=== PATIENT | female | born 1935 | race Hispanic/Latino ===

== ENCOUNTER 2018-05-09 12:44 | Inpatient (IN) | payer MEDICARE, SELFPAY ==
--- NOTE | 2018-05-09 13:26 | ED PDOC ---
Arrival/HPI - General EM Caveat: Uncooperative - History of Present Illness Time/Duration: Prior to Arrival Symptom Onset: Sudden Symptom Course: Unchanged Context: Walking, Exertion <Gelacio Garcia - Last Filed: 05/09/18 18:23> <Giuseppe Saxena - Last Filed: 05/10/18 15:26> - General Chief Complaint: Syncope Time Seen by Provider: 05/09/18 12:53 - History of Present Illness Narrative History of Present Illness (Text): 05/09/18 13:24 Patient is an 82 year old female with PMH of DM2, hypothyroidism, and HLD who presents to ED via EMS following a fall by her house. She was found to have numerous bed bugs all over her clothing upon arrival in ED. She states that remembers falling and denies LOC. She states that she lives alone and admits to not taking her previously prescribed medicines for an unknown period of time. She states that she only takes a pill for diabetes in the morning. She denies hitting her head and denies any pain anywhere. She was uncooperative throughout the exam and states she would rather go home. She admits to worsening dyspnea on exertion for the past month and believes this contributed to her fall. She denies fever, chills, PICKARD, blurred vision, CP, palpitations, or urinary changes. (Gelacio Garcia) Past Medical History - Provider Review Nursing Documentation Reviewed: Yes - Travel History Have you recently traveled outside [place] w/in the past 3 mons?: No - Infectious Disease Hx of Infectious Diseases: None - Tetanus Immunization Tetanus Immunization: Unknown - Cardiac Hx Cardiac Disorders: Yes Hx Hypertension: Yes - Pulmonary Hx Respiratory Disorders: No - Neurological Hx Neurological Disorder: No - Endocrine/Metabolic Hx Endocrine Disorders: Yes Hx Hypothyroidism: Yes - Musculoskeletal/Rheumatological Hx Falls: Yes - Gastrointestinal Hx Gastrointestinal Disorders: No - Genitourinary/Gynecological Hx Genitourinary Disorders: Yes Hx Urinary Tract Infection: Yes - Psychiatric Hx Psychophysiologic Disorder: Yes Hx Depression: Yes Hx Substance Use: No - Past Surgical History Past Surgical History: Non-Contributing - Suicidal Assessment Feels Threatened In Home Enviroment: No <Gelacio Garcia - Last Filed: 05/09/18 18:23> Family/Social History - Physician Review Nursing Documentation Reviewed: Yes Family/Social History: No Known Family HX Smoking Status: Never Smoked Hx Alcohol Use: No Hx Substance Use: No Hx Substance Use Treatment: No <Gelacio Garcia - Last Filed: 05/09/18 18:23> Allergies/Home Meds <Gelacio Garcia - Last Filed: 05/09/18 18:23> <Giuseppe Saxena - Last Filed: 05/10/18 15:26> Allergies/Adverse Reactions: Allergies No Known Allergies Allergy (Verified 05/09/18 12:59) Home Medications: Home Meds Medication Instructions Recorded Confirmed Unobtainable 05/09/18 05/09/18 Review of Systems - Physician Review All systems were reviewed & negative as marked: Yes - Review of Systems Systems not reviewed;Unavailable: Uncooperative Constitutional: absent: Fatigue, Fevers Eyes: absent: Vision Changes ENT: absent: Voice Changes, Sore Throat Respiratory: SOB. absent: Cough, Wheezing Cardiovascular: absent: Chest Pain, Palpitations Gastrointestinal: absent: Abdominal Pain, Nausea, Vomiting Genitourinary Female: absent: Dysuria Musculoskeletal: absent: Arthralgias Skin: absent: Rash Neurological: absent: Headache, Speech Changes Endocrine: absent: Diaphoresis Hemo/Lymphatic: absent: Adenopathy Psychiatric: absent: Anxiety, Depression <Gelacio Garcia - Last Filed: 05/09/18 18:23> Physical Exam Vital Signs Reviewed: Yes Temperature: Afebrile Blood Pressure: Normal Pulse: Regular Respiratory Rate: Normal Appearance: Positive for: Ill-Appearing, Unkept, Other (numerous bed bugs throughout clothing) Pain Distress: None Mental Status: Positive for: Confused - Systems Exam Head: Present: Atraumatic, Normocephalic Pupils: Present: PERRL Extroacular Muscles: Present: EOMI Conjunctiva: Present: Normal Ears: Present: Normal Mouth: Present: Dry Pharnyx: Present: Normal. No: ERYTHEMA, EXUDATE Nose (External): Present: Atraumatic Neck: Present: Normal Range of Motion Respiratory/Chest: Present: Clear to Auscultation. No: Wheezes, Rales, Rhonchi Cardiovascular: Present: Regular Rate and Rhythm, Normal S1, S2. No: Murmurs, Rub, Gallop Abdomen: No: Tenderness, Rebound, Guarding Back: Present: Normal Inspection Upper Extremity: Present: Normal Inspection. No: Cyanosis Lower Extremity: Present: Normal Inspection. No: Edema Neurological: Present: Speech Normal Skin: Present: Warm, Dry Psychiatric: Present: Alert, Oriented x 3, Agitated <Gelacio Garcia - Last Filed: 05/09/18 18:23> Vital Signs Temp Pulse Resp BP Pulse Ox 05/09/18 23:00 97.8 F 80 20 128/60 99 05/09/18 21:00 98 F 86 18 130/62 98 05/09/18 18:55 86 18 138/68 100 05/09/18 14:28 98.5 F 89 18 118/74 97 Medical Decision Making - Lab Interpretations I have reviewed the lab results: Yes Interpretation: Abnormal lab values (hyperglycemia, normocytic anemia, mildly elevated LFTs, elevated BNP) - RAD Interpretation Ethylbenzene Converter Operator: Radiologist - EKG Interpretation Interpreted by ED Physician: Yes Type: 12 lead EKG Comparison: No previous EKG avail. <Gelacio Garcia - Last Filed: 05/09/18 18:23> <Giuseppe Saxena - Last Filed: 05/10/18 15:26> ED Course and Treatment: 05/09/18 13:42 -Patient presents after pre-syncopal episode -Will get CBC, CMP, CT head wo contrast, 05/09/18 16:17 -Glucose noted to be 380 in ED -4 units of regular insulin given in ED 05/09/18 16:20 -Case discussed with Dr. Wilcox who agrees to admission -CT head and CXR still pending 05/09/18 18:20 -CT head and CXR negative for acute findings -Admission order placed (Gelacio Garcia) 05/10/18 15:25 pt seen with residnet s/p syncopal episode. pt poor hsitorain, unkept covered with bugs. labs baseline, ct neg, cxr neg. ua pos. antibootics dosed. acepte by dr wilcox. (Giuseppe Saxena) - Lab Interpretations Lab Results: 05/09/18 15:10 05/09/18 15:10 Lab Results 05/09/18 16:36: POC Glucose (mg/dL) 279 H 05/09/18 15:10: Sodium 140, Potassium 4.5, Chloride 102, Carbon Dioxide 26, Anion Gap 18, BUN 19, Creatinine 0.9, Est GFR ( Amer) > 60, Est GFR (Non- Af Amer) > 60, Random Glucose 380 H* D, Calcium 9.0, Magnesium 2.0, Total Bilirubin 0.4, AST 71 H, ALT 61 H, Alkaline Phosphatase 103, Lactate Dehydrogenase 645, Total Creatine Kinase 86, Troponin I < 0.01 D, NT-Pro-B Natriuret Pep 599 H, Total Protein 7.8, Albumin 4.0, Globulin 3.7, Albumin/ Globulin Ratio 1.1 05/09/18 15:10: PT 11.2, INR 0.98, APTT 23.9 L 05/09/18 15:10: WBC 9.2, RBC 3.59, Hgb 8.7 L, Hct 28.9 L, MCV 80.5, MCH 24.2 L, MCHC 30.1 L, RDW 15.3 H, Plt Count 348, MPV 8.5, Gran % 88.2 H, Lymph % (Auto) 6.6 L, [place] % (Auto) 5.0, Eos % (Auto) 0.0 L, Baso % (Auto) 0.2, Gran # 8.11 H, Lymph # (Auto) 0.6 L, [place] # (Auto) 0.5, Eos # (Auto) 0.0, Baso # (Auto) 0.02 - RAD Interpretation Narrative RAD Interpretations (Text): 05/09/18 18:18 CXR without acute findings CT Head: IMPRESSION: No definite acute intracranial findings by standard CT criteria. Age appropriate proportional stable age related neuro degenerative changes identified. Follow-up CT or MRI are available if clinically warranted. ( Gelacio Garcia) Radiology Orders: 05/09/18 13:35 HEAD W/O CONTRAST [CT] Stat CHEST PORTABLE [RAD] Stat - EKG Interpretation EKG Interpretation (Text): 05/09/18 14:00 Normal sinus rhythm, some mild ST depression in V5-V6 may be sign of ischemia ( Gelacio Garcia) - Medication Orders Current Medication Orders: Aspirin (Ecotrin) 81 mg PO DAILY [facility] Last Admin: 05/10/18 08:59 Dose: 81 mg Sodium Chloride (Sodium Chloride 0.45%) 1,000 mls @ 75 mls/hr IV .[id number] [facility]BIN Last Admin: 05/10/18 08:26 Dose: 75 mls/hr eMAR Start Stop Document 05/10/18 08:26 KMS (Rec: 05/10/18 08:26 KMS [id number]) Intravenous Solution Start Date 05/10/18 Start Time 08:26 Ceftriaxone Sodium (Rocephin 1 Gram Ivpb) 1 gm in 100 mls @ 100 mls/hr IVPB DAILY [facility] PRN Reason: Protocol Insulin Human Lispro (Humalog Med) 0 units SC ACHS [facility] PRN Reason: Protocol Last Admin: 05/10/18 12:21 Dose: 1 units MAR Blood Glucose Document 05/10/18 12:21 KMS (Rec: 05/10/18 12:21 KMS [id number]) Blood Glucose Finger Stick Blood Glucose (70-120) 195 Subcutaneous Administrations Document 05/10/18 12:21 KMS (Rec: 05/10/18 12:21 KMS [id number]) Injection Site MAR Injection Site Right Arm Charges for Administration # of Subcutaneous Administrations 1 Metformin HCl (Glucophage) 500 mg PO ACBD [facility] Last Admin: 05/10/18 08:25 Dose: 500 mg Discontinued Medications Ceftriaxone Sodium (Rocephin 1 Gram Ivpb) 1 gm in 100 mls @ 100 mls/hr IVPB STAT STA PRN Reason: Protocol Stop: 05/09/18 21:51 Last Admin: 05/10/18 00:23 Dose: 100 mls/hr eMAR Start Stop Document 05/10/18 00:23 MC (Rec: 05/10/18 00:24 MC [id number]) Intravenous Solution Start Date 05/10/18 Start Time 00:23 End Date 05/10/18 End time 01:25 Total Infusion Time 62 Ceftriaxone Sodium (Rocephin 1 Gram Ivpb) 1 gm in 100 mls @ 100 mls/hr IVPB STAT STA PRN Reason: Protocol Stop: 05/10/18 01:09 Last Admin: 05/10/18 01:30 Dose: 100 mls/hr eMAR Start Stop Document 05/10/18 01:30 MC (Rec: 05/10/18 03:28 MC [id number]) Intravenous Solution Start Date 05/10/18 Start Time 01:30 End Date 05/10/18 End time 02:30 Total Infusion Time 60 Insulin Human Regular (Humulin R) 4 units IV STAT STA Stop: 05/09/18 15:45 Last Admin: 05/09/18 16:33 Dose: 4 units eMAR Start Stop Document 05/09/18 16:33 [email or web address] (Rec: 05/09/18 16:39 [email or web address] [id number]) Intravenous Solution Start Date 05/09/18 Start Time 16:39 MAR Blood Glucose Document 05/09/18 16:33 [email or web address] (Rec: 05/09/18 16:39 [email or web address] [id number]) Blood Glucose Finger Stick Blood Glucose (70-120) 279 <Gelacio Garcia - Last Filed: 05/09/18 18:23> - Scribe Statement The provider has reviewed the documentation as recorded by the Scribe <Giuseppe Saxena - Last Filed: 05/10/18 15:26> - Scribe Statement Michael Hanson Patient Seen With Resident: In agreement with resident note. Patient was seen and evaluated with resident, came up with plan and treatment together. (Giuseppe Saxena) Disposition/Present on Arrival - Present on Arrival Any Indicators Present on Arrival: Yes History of DVT/PE: No History of Uncontrolled Diabetes: Yes Urinary Catheter: No History of Decub. Ulcer: No History Surgical Site Infection Following: None - Disposition Have Diagnosis and Disposition been Completed?: Yes Disposition Time: 18:19 Isolation: Contact Patient Plan: Admission <Gelacio Garcia - Last Filed: 05/09/18 18:23> <Giuseppe Saxena - Last Filed: 05/10/18 15:26> - Disposition Diagnosis: Fall, Hyperglycemia due to type 2 diabetes mellitus, Uncontrolled type 2 diabetes mellitus, Syncope, Abnormal EKG Disposition: HOSPITALIZED Patient Problems: Current Active Problems Problem Status Onset Abnormal EKG Acute Fall Acute Hyperglycemia due to type 2 diabetes mellitus Acute Syncope Acute Uncontrolled type 2 diabetes mellitus Acute Condition: FAIR
[2018-05-09 15:21] LABS: BASO # 0.02 K/mm3 (0.0-2.0); BASO % 0.2 % (0.0-3.0); GRAN # 8.11 (1.4-6.5); GRAN % 88.2 % (50.0-68.0); HEMOGLOBIN 8.7 g/dL (12.0-16.0); LYMPH # 0.6 (1.2-3.4); LYMPH % 6.6 % (22.0-35.0); MEAN CELL VOLUME 80.5 fl (80.0-105.0); MEAN CORPUSCULAR HEMOGLOBIN 24.2 pg (25.0-35.0); MEAN CORPUSCULAR HGB CONC 30.1 g/dl (31.0-37.0); MEAN PLATELET VOLUME 8.5 fl (7.0-11.0); MONO # 0.5 (0.1-0.6); RBC 3.59 10^6/uL (3.5-6.1); RED CELL DISTRIBUTION WIDTH 15.3 % (11.5-14.5); WHITE BLOOD COUNT 9.2 10^3/ul (4.5-11.0)
[2018-05-09 15:30] LABS: INR 0.98; PARTIAL THROMBOPLASTIN TIME 23.9 Seconds (25.1-36.5); PROTHROMBIN TIME 11.2 SECONDS (9.4-12.5)
[2018-05-09 15:43] LABS: ALB/GLOB RATIO 1.1 (1.1-1.8); ALT/SGPT 61 U/L (7-56); AST/SGOT 71 U/L (14-36); B-TYPE NATRIURETIC PEPTIDE 599 pg/mL (0-450); BLOOD UREA NITROGEN 19 mg/dL (7-21); GFR NON-AFRICAN AMERICAN > 60; TROPONIN I < 0.01 ng/mL
[2018-05-09] MEDS ORDERED: Insulin Regular 1 UNITS/0.01 ML ML IV STA (15:44)
--- NOTE | 2018-05-09 17:36 | CARD ---
APPROVED REPORT Date of service: 05/09/2018 EKG Measurement Heart [id number] <Conclusion> Normal sinus rhythm ST & T wave abnormality, consider lateral ischemia Abnormal ECG
--- NOTE | 2018-05-09 18:16 | CT ---
Date of service: 05/09/2018 PROCEDURE: CT HEAD WITHOUT CONTRAST. HISTORY: syncope COMPARISON: Head CT 08/11/2012 TECHNIQUE: Axial computed tomography images were obtained through the head/brain without intravenous contrast. Radiation dose: Total exam DLP = 741.61 mGy-cm. This CT exam was performed using one or more of the following dose reduction techniques: Automated exposure control, adjustment of the mA and/or kV according to patient size, and/or use of iterative reconstruction technique. FINDINGS: HEMORRHAGE: No intracranial hemorrhage. BRAIN: Good corticomedullary differentiation is seen. Age-appropriate, proportional, diffuse cerebral atrophy and chronic microangiopathy are reiterated. No suspicious extra-axial fluid collection is identified and the midline brain anatomy appears grossly nonfocal as imaged. There is no mass effect throughout. VENTRICLES: Unremarkable. No hydrocephalus. CALVARIUM: Unremarkable. 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 MASTOID AIR CELLS: Unremarkable as visualized. No inflammatory changes. OTHER FINDINGS: None. IMPRESSION: No definite acute intracranial findings by standard CT criteria. Age appropriate proportional stable age related neuro degenerative changes identified. Follow-up CT or MRI are available if clinically warranted.
--- NOTE | 2018-05-09 18:52 | HP ---
Copied To: Jamir Wilcox MD Attending MD: Jamir Wilcox MD HISTORY OF PRESENT ILLNESS: The patient is 82 years old, unkempt, was brought to emergency room after a fall by her house. The patient lives by herself. She cannot recall what happened, but she found herself on the floor. Did not lose consciousness. Very noncompliant with medications. No history of fever or chills. No nausea or vomiting. No diarrhea. Does complain of having generalized weakness and having shortness of breath on walking. Denies any chest pain. No abdominal pain. PAST MEDICAL HISTORY: Significant for, 1. Hypertension. 2. Hypothyroidism. 3. Hyperlipidemia. 4. Anxiety disorder. ALLERGIES: SHE IS NOT ALLERGIC TO ANY MEDICATIONS. SOCIAL HISTORY: She lives by herself. She is very unkempt and was documented by the ER physician that the patient had bedbugs allover her body and clothing. MEDICATIONS AT HOME: She is supposedly should be taking Enalapril, simvastatin, olanzapine and Synthroid. PHYSICAL EXAMINATION: GENERAL: Unkempt, not cooperative. VITAL SIGNS: She is afebrile, pulse 89, respirations 18, blood pressure 118/74. LUNGS: Bilateral good airflow. No rhonchi or crackle. HEART: S1 and S2 audible. ABDOMEN: Soft. Nontender. No rebound. No guarding. NEUROLOGICAL: The patient is awake, alert, oriented, communicative. LABORATORY EXAM: WBC is 9.2, hemoglobin 9.7, hematocrit 28.9, platelet of 348. PT 11.2, INR 0.98. Chemistry: Sodium 140, potassium 4.5, chloride 102, CO2 of 26, BUN 19, creatinine 0.9, blood sugar of 279, AST 71, ALT 61, BNP 599, troponin 0.01. CT scan of the head is unremarkable. X-ray chest is negative. She has age-appropriate brain atrophy. ASSESSMENT: 1. Status post fall and syncope. 2. History of hypertension. 3. Igh-qiahxzq-iobscoxsd diabetes. 4. Mild dementia. 5. History of bipolar disorder. PLAN: We will start the patient on IV fluid. Monitor her blood sugar. Resume her medications. Order for carotid Doppler. Also, request for neuro evaluation. Jamir Wilcox MD [facility] # [id number]
[2018-05-09] MEDS: Sodium Chloride 0.45% 1,000 ML IV SCH (19:35)
[2018-05-09 20:43] LABS: URINE BILIRUBIN NEGATIVE (NEGATIVE); URINE BLOOD NEGATIVE (NEGATIVE); URINE GLUCOSE (UA) 500 mg/dL (NEGATIVE); URINE LEUKOCYTE ESTERASE TRACE Leu/uL (NEGATIVE); URINE PROTEIN >=300 mg/dL (<30 mg/dL); URINE UROBILINOGEN 0.2 E.U./dL (<1 E.U./dL)
[2018-05-09 20:48] LABS: URINE COLOR YELLOW (YELLOW)
[2018-05-09 20:49] LABS: URINE APPEARANCE SLIGHT-CLOUDY (CLEAR)
[2018-05-09] MEDS ORDERED: cefTRIAXone 1 gm 1 GM/100 ML BAG IVPB STA (20:52)
[2018-05-09 21:07] LABS: TROPONIN I 0.02 ng/mL
[2018-05-10] MEDS: Insulin Lispro (humaLOG) MEDIUM Coverage SC SCH ×5 (00:06→23:41)
[2018-05-10] MEDS ORDERED: cefTRIAXone 1 gm 1 GM/100 ML BAG IVPB STA (00:10)
[2018-05-10 03:47] VITALS: BMI 31.6
[2018-05-10 07:47] LABS: IRON 19 ug/dL (45-180)
[2018-05-10 07:54] LABS: ALBUMIN 3.6 g/dL (3.0-4.8); ALT/SGPT 45 U/L (7-56); AST/SGOT 38 U/L (14-36); BLOOD UREA NITROGEN 15 mg/dL (7-21); GFR NON-AFRICAN AMERICAN > 60
[2018-05-10 07:56] LABS: % IRON SATURATION 5 % (20-55); TOTAL IRON BINDING CAPACITY 367 ug/dL (265-497)
[2018-05-10 08:02] LABS: BASO # 0.02 K/mm3 (0.0-2.0); BASO % 0.3 % (0.0-3.0); EOS # 0.4 (0.0-0.7); FREE T4 0.89 ng/dL (0.78-2.19); GRAN # 4.06 (1.4-6.5); GRAN % 57.1 % (50.0-68.0); HEMOGLOBIN 8.4 g/dL (12.0-16.0); LYMPH # 1.6 (1.2-3.4); LYMPH % 22.4 % (22.0-35.0); MEAN CELL VOLUME 80.8 fl (80.0-105.0); MEAN CORPUSCULAR HEMOGLOBIN 24.4 pg (25.0-35.0); MEAN CORPUSCULAR HGB CONC 30.2 g/dl (31.0-37.0); MEAN PLATELET VOLUME 8.5 fl (7.0-11.0); MONO % 14.2 % (1.0-6.0); RBC 3.44 10^6/uL (3.5-6.1); RED CELL DISTRIBUTION WIDTH 15.5 % (11.5-14.5); WHITE BLOOD COUNT 7.1 10^3/ul (4.5-11.0)
[2018-05-10] MEDS: Sodium Chloride 0.45% 1,000 ML IV SCH (08:26)
--- NOTE | 2018-05-10 10:26 | RAD ---
Date of service: 05/09/2018 HISTORY: sob COMPARISON: 07/22/2013. FINDINGS: LUNGS: The lungs are hyperinflated and there is peribronchial thickening with chronic changes in both lungs. PLEURA: No significant pleural effusion identified, no pneumothorax apparent. CARDIOVASCULAR: There is mild cardiomegaly. Atherosclerotic aortic arch calcifications are present. OSSEOUS STRUCTURES: No significant abnormalities. VISUALIZED UPPER ABDOMEN: Normal. OTHER FINDINGS: None. IMPRESSION: No active pulmonary disease. COPD.
--- NOTE | 2018-05-10 13:15 | CON ---
Copied To: King Ardon MD Attending MD: King Ardon MD NEUROLOGY CONSULTATION DATE: 05/10/2018 CHIEF COMPLAINT: Questionable syncope. HISTORY OF PRESENT ILLNESS: This is an 82-year-old woman with history of hypertension, hypothyroidism, hyperlipidemia, anxiety disorder, diabetes, very unkempt, was brought to emergency room after a fall in the house. Patient lives by herself. She cannot recall what happened. Apparently, she states she found herself on the floor but questionable whether she lost consciousness or not. She is very noncompliant with her medications. She does complain of generalized weakness, shortness of breath while walking but no focal weakness of the extremities. CAT scan of the head showed no acute intracranial abnormalities, had a mild chronic ischemic changes. She is very unkempt and has bedbugs all over her body and clothing and has been washed twice and is in isolation currently. ALLERGIES: NO KNOWN DRUG ALLERGIES. MEDICATIONS: Reviewed by nurse's reconciliation sheet. PAST MEDICAL HISTORY: Hypertension, hypothyroidism, hyperlipidemia, anxiety disorder, diabetes. REVIEW OF SYSTEMS: A 14-point review of systems is negative except as per the HPI. FAMILY HISTORY: Noncontributory. LABORATORY DATA: Sodium is 141, potassium 4.5, chloride 105, carbon dioxide 28, BUN of 15, creatinine 0.9, random glucose of 166. Iron is 19, percent saturation is 5. PHYSICAL EXAMINATION: GENERAL: Patient is sitting up in bed, in no acute distress. VITAL SIGNS: Temperature 98.2, pulse rate of 81, blood pressure 152/67, respiratory rate 20, oxygen saturation 96% via room air. HEENT: Atraumatic and normocephalic. PERRLA. Extraocular muscles intact. NECK: Supple. No JVD. No adenopathy noted. LUNGS: Clear to auscultation. No adventitious sounds. HEART: S1 and S2, normal rate and rhythm. No murmurs, rubs or gallops. ABDOMEN: Soft, nontender, nondistended. Bowel sounds are present. EXTREMITIES: No clubbing. No cyanosis. Peripheral pulses 2+ felt bilaterally. NEUROLOGIC: The patient is alert and oriented to person, place, month and year. Speech is fluent without any errors. Cranial nerves II through XII are intact. Motor exam: Moves all extremities equally. Slightly increased tone throughout. Sensory exam: Decreased light touch and pinprick up to the calves bilaterally. Decreased vibration of the toes. DTRs are 2+ throughout, 1 at both knees and ankles. Coordination: Isnbyq-ey-lqrd intact. No dysmetria noted. Gait is deferred for now. ASSESSMENT AND PLAN: This is an 82-year-old woman, who is very unkempt, noncompliant with medications, has history of bedbugs, history of hypertension, haw-aqiiebx-vpxtnkqre diabetes mellitus, bipolar disorder, hyperlipidemia, hypothyroidism at home after having a fall, where it is questionable whether she has a syncope event or not. She is very deconditioned and very noncompliant with medications and syncope could be secondary to possible vasovagal event versus deconditioned state causing her to fall. At this time, we would recommend: 1. Aspirin 81 mg for stroke prevention. 2. Iron supplementation. She has evidence of iron deficiency anemia. 3. Keep her blood sugars between 140 to 180. 4. She has mild questionable urinary tract infection, given her nitrites are positive, on ceftriaxone. 5. Gentle hydration. 6. Physical therapy and occupational therapy evaluation possibly to evaluate her gait. At this time, she is clinically stable. Thank you for this consult. King Ardon MD
--- NOTE | 2018-05-10 17:00 | PN ---
Copied To: Jamir Wilcox MD Attending MD: Jamir Wilcox MD DATE: 05/10/2018 SUBJECTIVE: The patient is 82 years old, seen and examined, seems to be better today. Denies any nausea or vomiting. Eating and tolerating. PHYSICAL EXAMINATION VITAL SIGNS: She is afebrile, pulse 81, respiration 20, blood pressure 152/69. LUNGS: Bilateral fair airflow. HEART: S1 and S2 audible. ABDOMEN: Soft, obese, nontender. No rebound. No guarding. NEUROLOGICAL: The patient is awake, alert, oriented, able to communicate, forgetful. EXTREMITIES: Bilateral legs, no edema. LABORATORY DATA: WBC 7.1, hemoglobin 8.4, hematocrit 27.8, platelet 305. Chemistry: Sodium 141, potassium 4.5, chloride 105, CO2 of 28, BUN 15, creatinine 0.9, blood sugar of 195. Her iron is 19. Followup AST 38, ALT 45. CT scan of the head is negative. Carotid Doppler is pending. Urine shows positive nitrites and glucose and proteinuria. ASSESSMENT: 1. Status post syncope, etiology is still unclear. 2. Uncontrolled hypertension. 3. controlled diabetes. 4. Anemia, etiology unclear. PLAN: I will order for stool for Hemoccult. Follow up carotid Doppler and encourage physical therapy. Follow up blood culture and urine cultures. The patient has bed-bug infestation and she is being isolated. We will need to get social professionals involved for safe discharge. Jamir Wilcox MD
[2018-05-11] MEDS: Sodium Chloride 0.45% 1,000 ML IV SCH ×2 (00:24→12:14)
[2018-05-11 06:36] VITALS: O2SAT 95
[2018-05-11] MEDS: Insulin Lispro (humaLOG) MEDIUM Coverage SC SCH ×2 (08:41→12:28)
[2018-05-11] MEDS ORDERED: cefTRIAXone 1 gm 1 GM/100 ML BAG IVPB SCH (10:00)
[2018-05-11 14:08] VITALS: BP 148/65; PULSE 85; RESP 18; TEMP 98.1
--- NOTE | 2018-05-12 10:24 | DS ---
Copied To: Jamir Wilcox MD Attending MD: Jamir Wilcox MD HISTORY OF PRESENT ILLNESS: The patient is 82 years old, seen and examined, sitting in chair, seems to be comfortable, anxious to go home. The patient was found to have bedbugs in her clothing. She was given bath, she was placed in isolation, doing well. I think this is not a safe discharge. Correction Worker needs to look into her situation well for safe discharge, but the patient is adamant and she wants to go home and she wants to sign against medical advise. PHYSICAL EXAMINATION: GENERAL: Today, she is awake, alert, oriented, communicative. VITAL SIGNS: She is afebrile, pulse 70, respiration 20, blood pressure 153/60. LUNGS: Bilateral fair airflow. No rhonchi or crackle. HEART: S1, S2 audible. ABDOMEN: Soft, obese. Nontender. No rebound. No guarding. NEUROLOGICAL: The patient is awake, alert, oriented, able to communicate, ambulatory. LABORATORY EXAM: WBC 7.1, hemoglobin 8.4, hematocrit 27.8, platelet of 305. Chemistry, blood sugar is 191. Urine shows positive nitrites. ASSESSMENT: 1. Status post syncope, probably dehydration. 2. Anemia, the patient was advised to have colonoscopy and endoscopy done, but she does not want to do anything, she was focused on going home. 3. Hypertension. 4. Aic-sbnbmuz-zpuyavewi diabetes, noncompliant with her medications. PLAN: The patient is not willing to stay. She is signing against medical advise. She said she will follow with her PMD. Jamir Wilcox MD
== END 2018-05-11 14:19 | disposition left against medical advice (07) | DRG 641 ==
LOC: ED 12:44 → ERH 18:17 → 2RNO 22:59
PROVIDERS: ADMIT Internal Medicine; ATTEND Internal Medicine
DX: E86.0 Dehydration (principal); E11.65 Type 2 diabetes mellitus with hyperglycemia; E78.5 Hyperlipidemia, unspecified; E03.9 Hypothyroidism, unspecified; I10 Essential (primary) hypertension; F03.90 Unspecified dementia, unspecified severity, without behavioral disturbance, psychotic disturbance, mood disturbance, and anxiety; D50.9 Iron deficiency anemia, unspecified; F41.9 Anxiety disorder, unspecified; Z91.14 Patient's other noncompliance with medication regimen; Z79.84 Long term (current) use of oral hypoglycemic drugs; Z78.9 Other specified health status; Z91.81 History of falling